=== PATIENT | female | born 1960 | race Caucasian/White ===

== ENCOUNTER 2023-06-24 10:55 | Day surgery (SDC) | payer OTHER ==
[~2023-06-24] VITALS: Ht 125 cm; Wt 65.8 kg
[2023-06-24] MEDS ORDERED: diphenhydrAMINE 50 MG/ML VIAL ONE (12:30)
[2023-06-24] MEDS ORDERED: MIDAZOLAM 2 MG/2 ML VIAL ONE (12:30)
[2023-06-24] MEDS ORDERED: fentaNYL citrate 0.05 MG/ML VIAL ONE (12:30)
[2023-06-24] MEDS ORDERED: LIDOCAINE 2% 100 MG/5 ML UJET TP ONE (12:31)
[2023-06-24] MEDS ORDERED: MIDAZOLAM 2 MG/2 ML VIAL IVP ONE (14:15)
[2023-06-24] MEDS ORDERED: fentaNYL citrate 0.05 MG/ML VIAL IVP ONE (14:15)
[2023-06-24] MEDS ORDERED: diphenhydrAMINE 50 MG/ML VIAL IVP ONE (14:15)
== END 2023-06-24 15:46 | disposition home or self-care (01) ==
LOC: MDS 10:55 → MMU 11:07 → MDS 15:46
PROVIDERS: ATTEND Internal Medicine Gastroenterology
DX: Z12.11 Encounter for screening for malignant neoplasm of colon (principal); D12.4 Benign neoplasm of descending colon; I10 Essential (primary) hypertension; E11.9 Type 2 diabetes mellitus without complications; E78.00 Pure hypercholesterolemia, unspecified; M19.90 Unspecified osteoarthritis, unspecified site; M79.7 Fibromyalgia; Z79.899 Other long term (current) drug therapy
CPT/HCPCS: 45385; J1200; J2250; J3010